=== PATIENT | female | born 1960 | race Hispanic/Latino ===

== ENCOUNTER 2020-12-12 08:19 | Outpatient (CLI) | payer BC ==
--- NOTE | 2020-12-12 09:50 | MRI ---
Exam: Brain MRI with and without contrast HISTORY: Disequilibrium. Dizziness and disorientation times a few months. COMPARISON: None FINDINGS: Gradient echo sequence: No hemorrhage Calvarium: Appropriate T1 marrow signal intensity Midline brain parenchyma: Unremarkable Cerebrum:No parenchymal mass, mass effect or midline shift. Brain volume is age-appropriate. Chavira-whi te matter differentiation is preserved. There is a solitary T2 and FLAIR white matter hyperintensities involving the left temporal lobe. Ventricles: No evidence of hydrocephalus. Additional findings: Note is made of a partially empty sella. There is appropriate signal intensity i n the visualized internal auditory canal and inner ear structures Sinuses and mastoid air cells: Mild mucosal thickening of the paranasal sinuses. There is a fluid lev el in the left maxillary sinus. Diffusion: Central arterial flow is maintained. Absent restricted diffusion. Postcontrast images: No pathologic enhancement of the brain parenchyma. IMPRESSION: 1. Absent restricted diffusion. No acute infarct 2. No acute intracranial process.
[2020-12-12] MEDS ORDERED: Magnevist 469MG/ML 20 ML VIAL ONE (14:43)
== END 2020-12-12 08:20 | disposition home or self-care (01) ==
LOC: BICMRI 08:19
PROVIDERS: ATTEND Psychiatry & Neurology Neurology
DX: R42 Dizziness and giddiness (principal)
CPT/HCPCS: 70553; A9579